=== PATIENT | male | born 1930 | race Caucasian/White ===

== ENCOUNTER → 2016-05-05 | Outpatient (CLI) | payer OTHER | END | disposition home or self-care (01) | LOC: PCVCCLINIC 11:48 | PROVIDERS: ATTEND Internal Medicine Cardiovascular Disease | DX: I48.92 Unspecified atrial flutter (principal); I10 Essential (primary) hypertension; I35.0 Nonrheumatic aortic (valve) stenosis; I05.9 Rheumatic mitral valve disease, unspecified; I73.9 Peripheral vascular disease, unspecified; R60.0 Localized edema; E78.00 Pure hypercholesterolemia, unspecified | CPT/HCPCS: 80061; 93005; 93306; G0463 ==

== ENCOUNTER → 2016-05-08 | Outpatient (CLI) | payer OTHER ==
[~2016-05-08] MED LIST: DIAZEPAM 10 MG TABLET ONE; FENTANYL PF 100 MCG/2 ML VIAL. ONE; IOHEXOL 300 MG/ML 100ML VIAL. ONE; IV NORMAL SALINE 1000ML BAG 1,000 ML ONE; LIDOCAINE 1% Multi-Dose 20 ML VIAL. ONE; MIDAZOLAM HCL 2 MG/2 ML VIAL. ONE
== END | disposition home or self-care (01) ==
LOC: PCVCINTER 09:56
PROVIDERS: ATTEND Nuclear Medicine Nuclear Cardiology
DX: I87.2 Venous insufficiency (chronic) (peripheral) (principal); I87.323 Chronic venous hypertension (idiopathic) with inflammation of bilateral lower extremity; I87.1 Compression of vein; M79.89 Other specified soft tissue disorders
CPT/HCPCS: 36012; 37252; 37253; 75822; 75825; 76937; C1751; C1753; C1769; C1894; J2250; J3010; J7030; Q9967